=== PATIENT | male | born 1975 | race Caucasian/White ===

== ENCOUNTER → 2019-10-14 | Outpatient (CLI) | payer OTHER ==
--- NOTE | 2019-10-14 11:35 | NUR ---
PT HERE FOR MEDIPORT FLUSH ORDERED. [facility] [place] MED[facility]ORT ACCESSED WITH NONCORING NEEDLE WITHOUT DIFFULCUTY. SLUGGISH BLOOD RETURN NOTED BUT FLUSHES EASILY. HEPARIN FLUSH PER PP COMPLETED. NEEDLE REMOVED AND DRESSING APPLIED. NO HEMATOMA NOTED. LINDY VELAZCO RN
== END | disposition home or self-care (01) ==
LOC: MEDIPORT 11:06
DX: Z45.2 Encounter for adjustment and management of vascular access device (principal); C32.9 Malignant neoplasm of larynx, unspecified

== ENCOUNTER → 2020-09-01 | Outpatient (CLI) | payer OTHER ==
[2020-09-01 10:42] LABS: FREE T4 0.78 ng/dl (0.76-1.46)
[2020-09-01 11:04] LABS: THYROID STIM HORMONE (HS) 46.6 uIU/ml (0.358-4.75)
== END | disposition home or self-care (01) ==
LOC: LAB 09:46
PROVIDERS: ATTEND Internal Medicine Endocrinology, Diabetes & Metabolism
DX: E03.9 Hypothyroidism, unspecified (principal); E55.9 Vitamin D deficiency, unspecified